=== PATIENT | male | born 1975 ===

== ENCOUNTER → 2018-07-14 13:26 | Outpatient (REF) | payer SELFPAY ==
[2018-07-14 14:02] LABS: Alanine Aminotransferase 77 IU/L (21-72); Albumin 4.6 g/dL (3.5-5.0); Albumin Globulin Ratio 1.6 (1.0-2.8); Alkaline Phosphatase 78 U/L (38-126); Aspartate Aminotransferase 40 IU/L (17-59); BUN Creatinine Ratio 21.3 (6-22); Bilirubin Total 0.6 mg/dL (0.2-1.3); Blood Urea Nitrogen 17 mg/dL (9-20); Calcium 9.6 mg/dL (8.4-10.2); Carbon Dioxide 26 mmol/L (22-32); Chloride 104 mmol/L (98-107); Cholesterol 147 mg/dL (140-199); Estimated Glomerular Filt Rate > 60.0 mL/min (>60); Globulin 2.8 g/dL (1.7-4.1); Glucose 98 mg/dL (70-100); HDL Cholesterol 53 mg/dL (40-60); HEMOLYSIS 17 (0-50); LDL Cholesterol Calculated 80 mg/dL (<100); Potassium 4.9 mmol/L (3.4-5.1); Sodium 145 mmol/L (137-145); Total Protein 7.4 g/dL (6.3-8.2); Triglycerides 68 mg/dL (35-150)
[2018-07-14 14:03] LABS: Hemoglobin A1C% w Est Avg Glu 5.5 % (4.0-6.0)
== END ==
LOC: LAB 13:26
PROVIDERS: Visit Provider Family Medicine
DX: Z13.6 Encounter for screening for cardiovascular disorders (principal); Z13.1 Encounter for screening for diabetes mellitus; Z13.228 Encounter for screening for other metabolic disorders
CPT/HCPCS: 36415; 80053; 80061; 83036